=== PATIENT | female | born 1980 | race Caucasian/White ===

== ENCOUNTER 2017-01-05 09:10 | Emergency (ER) | payer OTHER ==
[2017-01-05 09:59] VITALS: BP 138/96
--- NOTE | 2017-01-05 10:35 | UC ---
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 last night had a period of panic with racing heart such that she felt unsafe to drive. Blood pressure was elevated to 143/100, decreased once she calmed down to 128. She has used alprazolam in the past for anxiety with good success. Has not used SSRI's. Stressors include work, poor sleep, childcare worries, grief over past experiences. - History Of Current Complaint Chief Complaint: UCPsych Stated Complaint: ANXIETY Time Seen by Provider: 01/05/17 10:07 Hx Obtained From: Patient Hx Last Menstrual Period: unknown, Nexplanon left arm Onset/Duration: Gradual Onset - worsening insomnia over the past month., Lasting Days - 2 Timing: Hours Severity Initially: Moderate Severity Currently: Moderate Character: Anxious Aggravating Factor(s): Recent Stress Alleviating Factor(s): Nothing Associated Signs And Symptoms: Sleep Disturbance Recent Stressor(s): experience of trauma - Risk Factor(s) Completed Suicide Risk Factors: Negative - Allergies/Home Medications Allergies/Adverse Reactions: Allergies Allergy/AdvReac Type Severity Reaction Status Date / Time No Known Allergies Allergy Verified 01/05/17 09:58 Home Medications: Home Medications Metoprolol Tartrate TAB* [Lopressor TAB*] 25 mg PO DAILY 01/05/17 [History Confirmed 01/05/17] Spironolactone TAB* [Aldactone TAB*] 25 mg PO DAILY 01/05/17 [History Confirmed 01/05/17] amLODIPine TAB* [Norvasc 5 mg TAB*] 5 mg PO DAILY 01/05/17 [History Confirmed ] PMH/Surg Hx/FS Hx/Imm Hx - Additional Past Medical History Additional PMH: obesity Cardiovascular History Of: Reports: Hypertension Psychological History Of: Reports: Anxiety - Surgical History Surgical History: Yes Surgery Procedure, Year, and Place: OPEN HEART . C Section. Exp Lap - Family History Known Family History: Positive: Other - father is bipolar mother of bile duct cancer. - Social History Occupation: Employed Full-time Lives: With Family Alcohol Use: Rare Substance Use Type: None Smoking Status (MU): Never Smoked Tobacco Review of Systems Constitutional: Fatigue Skin: Negative Eyes: Negative ENT: Negative Respiratory: Negative Cardiovascular: Palpitations - yesterday had palpitations. Gastrointestinal: Negative Genitourinary: Negative Motor: Weakness - feeling unwell at times. Neurovascular: Negative Musculoskeletal: Negative Neurological: Negative Psychological: Anxious All Other Systems Reviewed And Are Negative: Yes Physical Exam Triage Information Reviewed: Yes Appearance: Obese Vital Signs: Initial Vital Signs Temp 98.3 F 01/05/17 09:53 Pulse 100 01/05/17 09:53 Resp 14 01/05/17 09:53 BP 138/96 01/05/17 09:53 Pulse Ox 99 01/05/17 09:53 Vital Signs Reviewed: Yes Neck exam: Normal Respiratory: Positive: Lungs clear, Normal breath sounds Cardiovascular: Positive: RRR, No Murmur Psychological Exam: Other - presents neatly groomed and dressed, anxious, speech normal, thoughts organized. No hallucinations, alert and oriented. No suicidal or homicidal ideation. Insight good and judgement intact. Skin Exam: Normal Psych Complaint Course/Dx - Course Course Of Treatment: brief use of alprazolam for anxiety. follow up PMD, consider counselling. monitor BP. [facility] review--[id number] - Differential Dx/Diagnosis Provider Diagnoses: anxiety, panic disorder. Discharge - Discharge Plan Condition: Stable Disposition: HOME Prescriptions: Alprazolam [Alprazolam Odt] 0.25 mg PO TID PRN #15 tab MDD 3 PRN Reason: Anxiety Patient Education Materials: Anxiety (ED) Additional Instructions: Ensure that you follow up with Luke Magana to discuss anxiety, follow up blood pressure elevation. Use alprazolam as needed, with caution, and do not combine with alcohol and avoid driving while using. I suggest counselling for support.
== END 2017-01-05 10:51 | disposition home or self-care (01) ==
LOC: UCCORT 09:10
DX: F41.0 Panic disorder [episodic paroxysmal anxiety] (principal); I10 Essential (primary) hypertension; E66.9 Obesity, unspecified
CPT/HCPCS: 99202; G0463

== ENCOUNTER 2017-07-09 18:04 | Emergency (ER) | payer OTHER ==
--- NOTE | 2017-07-09 19:23 | UC ---
Back Pain HPI - HPI Summary HPI Summary: 36 year old female presents with cough, sinus congestion, fatigue , and back pain. - History of Current Complaint Stated Complaint: FATIGUE, BACK SPASMS Time Seen by Provider: 07/09/17 19:22 Hx Obtained From: Patient Hx Last Menstrual Period: unknown, Nexplanon left arm Onset/Duration: Sudden Onset Timing: Constant Severity Initially: Moderate Severity Currently: Moderate - Allergies/Home Medications Allergies/Adverse Reactions: Allergies Allergy/AdvReac Type Severity Reaction Status Date / Time No Known Allergies Allergy Verified 07/09/17 19:51 Home Medications: Home Medications Etonogestrel [Nexplanon] 07/09/17 [History] PMH/Surg Hx/FS Hx/Imm Hx Previously Healthy: Yes - Surgical History Surgical History: Yes Surgery Procedure, Year, and Place: OPEN HEART INFANT. C Section. Exp Lap - Family History Known Family History: Positive: Other - father is bipolar mother of bile duct cancer. - Social History Alcohol Use: Rare Substance Use Type: None Smoking Status (MU): Never Smoked Tobacco Review of Systems Constitutional: Negative Skin: Negative Eyes: Negative ENT: Sore Throat, Ear Ache, Nasal Discharge, Sinus Congestion, Sinus Pain/ Tenderness Respiratory: Negative, Cough Cardiovascular: Negative Gastrointestinal: Negative Genitourinary: Negative Motor: Negative Neurovascular: Negative Musculoskeletal: Negative Neurological: Negative Psychological: Negative All Other Systems Reviewed And Are Negative: Yes Physical Exam Triage Information Reviewed: Yes Vital Signs Reviewed: Yes Eye Exam: Normal ENT: Positive: Pharyngeal erythema, Nasal congestion, Nasal drainage, Sinus tenderness Dental Exam: Normal Neck exam: Normal Neck: Positive: 1 Respiratory Exam: Normal Cardiovascular Exam: Normal Abdominal Exam: Normal Musculoskeletal Exam: Normal Neurological Exam: Normal Psychological Exam: Normal Skin Exam: Normal Back Pain Course/Dx - Differential Dx/Diagnosis Provider Diagnoses: sinus congestion. post nasal drip cough Discharge - Discharge Plan Condition: Stable Disposition: HOME Prescriptions: Amoxicillin/Clavulanate TAB* [Augmentin TAB 875*] 875 mg PO BID #20 tab Guaifenesin-Codeine [Cheratussin AC] 1 teasp PO Q8H PRN #120 syp MDD 15 ML PRN Reason: Cough LoraTADine TAB(NF) [Claritin 10 MG TAB(NF)] 10 mg PO DAILY #30 tab Magic M W2 Tomás/Maal/Nyst/Lido* 5 ml SWISH SPIT QID PRN #120 ml PRN Reason: Pain Patient Education Materials: Sinusitis (ED) Referrals: No Primary Care Phys,NOPCP [Medical Doctor] -
[2017-07-09 20:13] VITALS: BP 131/74
== END 2017-07-09 20:19 | disposition home or self-care (01) ==
LOC: UCCORT 18:04
DX: J34.89 Other specified disorders of nose and nasal sinuses (principal); R09.82 Postnasal drip
CPT/HCPCS: 99212; G0463

== ENCOUNTER 2019-06-10 07:27 | Emergency (ER) | payer OTHER ==
--- OUTSIDE RECORDS SUMMARY | 2019-06-10 07:34 | XMS REPORT | Continuity of Care Document ---
:1980 External Reference #:[id number] Author Name Karon Palacios FNP (transmitted by agent of provider Juana Licona) Address [address] [place] [id number] Care Team Providers Name Role Phone Gabriela Nicholson PA - Medical Care Team Information Esl Professor [phone] Problems Active Problems Provider Date Benign essential hypertension Gabriela Nicholson PA Onset: 10/07/2017 Adjustment disorder with mixed emotional Mansi García FNP Onset: features Social History Type Date Description Comments Sex Unknown Tobacco Use Start: Unknown Never Smoked Cigarettes Smoking Status Reviewed: 05/20/19 Never Smoked Cigarettes ETOH Use Currently consumes alcohol socially Tobacco Use Start: Unknown Patient denies history of smoking Exercise Exercises regularly Stationary bike 3-4 Type/Frequency times per week. Allergies, Adverse Reactions, Alerts Description No Known Drug Allergies Medications Active Medications SIG Qnty Indications Ordering Provider Date Amoxicillin 1 tabs twice a 20tabs H66.91 Suzanne, 05/20/2019 875mg day x 10 days KRISSY Delong Tablets Metoprolol Tartrate Take 1 Tablet 180Tablet Gabriela Nicholson PA 02/04/2019 By Mouth Twice 25mg Tablets A Day Amlodipine Besylate Take 1 Tablet 90Tablet Gabriela Nicholson PA 12/11/2018 By Mouth Every 5mg Tablets Day Buspirone HCL take one half 60tabs F43.23 Trista Sahni, 08/21/2018 10mg to one tablet MD Tablets by mouth two times a day Sprintec 28 1 by mouth 84tabs Z30.46 Raquel, 07/01/2018 every day Mansi, 0.25-35mg-mcg PETROLOGIST Tablets Immunizations CPT Code Status Date Vaccine Lot # [id number] Given 07/01/2018 Influenza Virus Vaccine, Quadrivalent, 36 Mos+, [id number] Vital Signs Date Vital Result Comment 05/20/2019 1:57pm BP Systolic 136 mmHg BP Diastolic 93 mmHg Body Temperature 97.8 F Heart Rate 93 /min Respiratory Rate 22 /min Weight 232.38 lb O2 % BldC Oximetry 97 % Asthma Control Test 0 02/23/2019 11:49am BP Systolic 122 mmHg BP Diastolic 72 mmHg Body Temperature 98.6 F Heart Rate 81 /min Weight 227.38 lb O2 % BldC Oximetry 98 % Results Description No Information Available Procedures Date Code Description Status 02/23/2019 30055 Brief Emotional/Behav Assessment W/ Scoring Doc Per Completed Standard Inst Medical Devices Description No Information Available Encounters Type Date Location Provider Dx Diagnosis Office Visit 05/20/2019 Walk In Clinic Suzanne H66.91 Otitis media, 2:00p Karon Giordano, PETROLOGIST unspecified, right ear J01.00 Acute maxillary sinusitis, unspecified Office Visit 02/23/2019 11:30a Family Medicine Gabriela Nicholson, F43.[address] PA disorder with mixed anxiety and depressed mood I10 Essential (primary) hypertension Assessments Date Code Description Provider 05/20/2019 H66.91 Otitis media, unspecified, right ear Karon Palacios, PETROLOGIST 05/20/2019 J01.00 Acute maxillary sinusitis, Karon Palacios, PETROLOGIST unspecified 02/23/2019 F43.23 Adjustment disorder with mixed Gabriela Nicholson PA anxiety and depressed mood 02/23/2019 I10 Essential (primary) hypertension Gabriela Nicholson PA Plan of Treatment 05/20/2019 - Karon Palacios, FNPH66.91 Otitis media, unspecified, right earNew Medication:Amoxicillin 875 mg - 1 tabs twice a day x 10 daysComments:Use amoxicillin as directed,Continue regular fluid intake, may need to give smaller volumes more frequently than usual. Frequent handwashing for all members of the household to prevent spread of germs. Please avoid exposure to tobacco smoke and/or polluted air. Use Tylenol (acetaminophen), or Advil(ibuprofen), as needed for fever or aches, dosage according to package instructions. You can return to school when fever free for 24 hours without the use of fever reducing medication. followup with your primary doctor within 10 days for recheck, sooner If new or worsening symptoms occur.J01.00 Acute maxillary sinusitis, unspecifiedComments:see above Functional Status Description No Information Available Mental Status Description No Information Available Referrals Description No Information Available
[2019-06-10 07:43] VITALS: BP 132/106
--- NOTE | 2019-06-10 08:11 | UC ---
Skin Complaint HPI - HPI Summary HPI Summary: 38-year-old woman comes in with a chief complaints of a rash on her right breast. She noticed that today.'s been having about 5 days of pain in her right trapezius posterior upper thoracic area. Been using icy hot it's not helping. No rash on the back. Fevers no chills feels well otherwise. - History of Current Complaint Chief Complaint: UCSkin Time Seen by Provider: 06/10/19 08:03 Stated Complaint: RASH Hx Last Menstrual Period: 06/09/19 Pain Intensity: 7 - Allergy/Home Medications Allergies/Adverse Reactions: Allergies Allergy/AdvReac Type Severity Reaction Status Date / Time No Known Allergies Allergy Verified 06/10/19 07:36 Home Medications: Home Medications Ibuprofen TAB* [Advil TAB*] 600 mg PO Q6H PRN 06/10/19 [History Confirmed ] PMH/Surg Hx/FS Hx/Imm Hx Previously Healthy: Yes Cardiovascular History: Hypertension Psychological History: Anxiety - Surgical History Surgical History: Yes Surgery Procedure, Year, and Place: OPEN HEART . C Section. Exp Lap - Family History Known Family History: Positive: Other - father is bipolar mother of bile duct cancer. - Social History Alcohol Use: Rare Substance Use Type: None Smoking Status (MU): Never Smoked Tobacco Review of Systems All Other Systems Reviewed And Are Negative: Yes Constitutional: Positive: Negative Skin: Positive: Other - SEE HPI Eyes: Positive: Negative ENT: Positive: Negative Respiratory: Positive: Negative Cardiovascular: Positive: Negative Gastrointestinal: Positive: Negative Motor: Positive: Negative Neurovascular: Positive: Negative Musculoskeletal: Positive: Negative Neurological: Positive: Negative Psychological: Positive: Negative Is Patient Immunocompromised?: No Physical Exam Triage Information Reviewed: Yes Appearance: Well-Appearing, No Pain Distress, Well-Nourished Vital Signs: Initial Vital Signs Temp 98.4 F 06/10/19 07:38 Pulse 100 06/10/19 07:38 Resp 15 06/10/19 07:38 BP 132/106 06/10/19 07:38 Pulse Ox 99 06/10/19 07:38 Vital Signs Reviewed: Yes Eye Exam: Normal Eyes: Positive: Conjunctiva Clear Neck: Positive: Supple Respiratory: Positive: No respiratory distress Musculoskeletal: Positive: Strength Intact, ROM Intact Neurological: Positive: Alert, Muscle Tone Normal Psychological: Positive: Age Appropriate Behavior Skin: Positive: Other - In a dermatomal distribution patient has an erythematous rash with patches 2-3 mm in diameter underneath the right arm on the right lateral chest and onto the right breast. She is tender to palpation to the right side of the upper thoracic spine in the trapezius muscle. No rash on the back. Is no streaking there is no drainage. No vesicles at this time. Course/Dx - Diagnoses Provider Diagnosis: Shingles Discharge ED - Sign-Out/Discharge Documenting (check all that apply): Patient Departure All imaging exams completed and their final reports reviewed: No Studies - Discharge Plan Condition: Stable Disposition: HOME Prescriptions: Valacyclovir HCl [Valacyclovir] 1 gm PO TID #21 tab Patient Education Materials: Shingles (ED) Referrals: Gabriela Nicholson PA [Primary Care Provider] - Additional Instructions: FOLLOW UP WITH YOUR DOCTOR IF NOT COMPLETELY IMPROVED. GET REEVALUATED SOONER IF NOT IMPROVING OR YOUR CONDITION WORSENS OR ANY QUESTIONS OR CONCERNS. - Billing Disposition and Condition Condition: STABLE Disposition: Home
== END 2019-06-10 08:18 | disposition home or self-care (01) ==
LOC: UCCORT 07:27
DX: B02.9 Zoster without complications (principal); I10 Essential (primary) hypertension; F41.9 Anxiety disorder, unspecified
CPT/HCPCS: 99212; G0463

== ENCOUNTER 2019-06-14 17:42 | Emergency (ER) | payer OTHER ==
[2019-06-14 18:58] VITALS: BP 131/93
--- NOTE | 2019-06-14 19:08 | UC ---
Respiratory Complaint HPI - HPI Summary HPI Summary: C/O left eye redness and drainage with crusting. Also with sore throat, cough with coughing fits and nasal congeston. Has allergies and thought was just allergies. No sinus pain. - History of Current Complaint Chief Complaint: UCGeneralIllness Stated Complaint: ST,COUGH, B/L EYE Time Seen by Provider: 06/14/19 18:58 Hx Obtained From: Patient Hx Last Menstrual Period: 06/03/19 ?: No Onset/Duration: Gradual Onset, Lasting Weeks - 1, Worse Since - yesterday with worsening sore throat and eye drainage. Timing: Constant Severity Initially: Mild Severity Currently: Moderate Pain Intensity: 7 Character: Cough: Nonproductive Aggravating Factors: Allergens, Recumbent Position Alleviating Factors: Nothing Associated Signs And Symptoms: Positive: Wheezing, URI, Nasal Congestion. Negative: Sinus Discomfort Related History: Seasonal Allergies - Allergies/Home Medications Allergies/Adverse Reactions: Allergies Allergy/AdvReac Type Severity Reaction Status Date / Time No Known Allergies Allergy Verified 06/14/19 18:58 Home Medications: Home Medications Chlorpheniramine/Dextromethorp [Coricidin Hbp Cough-Cold Tab] 1 tab PO BID 06/14 [History Confirmed 06/14/19] PMH/Surg Hx/FS Hx/Imm Hx Previously Healthy: Yes - Surgical History Surgical History: Yes Surgery Procedure, Year, and Place: OPEN HEART INFANT. C Section. Exp Lap - Family History Known Family History: Positive: Hypertension, Other - father is bipolar mother of bile duct cancer. - Social History Occupation: Employed Full-time Lives: With Family Alcohol Use: Rare Substance Use Type: None Smoking Status (MU): Never Smoked Tobacco Review of Systems All Other Systems Reviewed And Are Negative: Yes Constitutional: Positive: Fatigue Eyes: Positive: Drainage, Eye Redness ENT: Positive: Sore Throat, Nasal Discharge Respiratory: Positive: Cough - with coughing fits at night. Physical Exam Triage Information Reviewed: Yes Appearance: No Pain Distress, Ill-Appearing, Obese Vital Signs: Initial Vital Signs Temp 98.3 F 06/14/19 18:54 Pulse 97 06/14/19 18:54 Resp 17 06/14/19 18:54 BP 131/93 06/14/19 18:54 Pulse Ox 98 06/14/19 18:54 Vital Signs Reviewed: Yes Eyes: Positive: Conjunctiva Inflamed - OS, Discharge - OS ENT: Positive: Pharyngeal erythema, Nasal congestion - with allergic changes, TMs normal Neck exam: Normal Respiratory Exam: Normal Respiratory: Positive: Wheezing - mild expiratory wheeze with coughing. Musculoskeletal Exam: Normal Neurological Exam: Normal Psychological Exam: Normal Skin Exam: Normal Respiratory Course/Dx - Differential Dx/Diagnosis Differential Diagnosis/HQI/PQRI: Asthma, Bronchitis, Lower Resp Infection, Sinusitis Provider Diagnosis: Upper respiratory infection with cough and congestion, Bronchospasm, acute, Viral conjunctivitis of left eye Discharge ED - Sign-Out/Discharge Documenting (check all that apply): Patient Departure All imaging exams completed and their final reports reviewed: No Studies - Discharge Plan Condition: Stable Disposition: HOME Prescriptions: Erythromycin OPTH OINT* [Erythromycin 0.5% OPTH OINT*] 1 applic LEFT EYE TID # 3.5 gm predniSONE TAB* [Deltasone 20 MG TAB*] 60 mg PO DAILY #18 tab Patient Education Materials: Bronchospasm (ED), Conjunctivitis (ED) Forms: *Work Release Referrals: Gabriela Nicholson PA [Primary Care Provider] - Additional Instructions: EYE OINTMENT USE: Wash hands. Place 1/4" strip across tip of finger. Pull lower lid down with the index finger and stabilize the ointment finger with the middle finger and scrape the ointment off on the lid. Pull the lid out and let go as you look down. NEILMED SINUS RINSE: CHECK OUT AT [employer] Saline nasal wash helps with mucous, allergies and congestion. It can be used up to twice a day or only as needed. Use lukewarm tap water. It does not have to be sterilized or distilled water. Do 1/3 on each side and snort out of both nostrils. Repeat the process with 1/6 of the bottle on each side with snorting in between to finish the solution in the bottle - Billing Disposition and Condition Condition: STABLE Disposition: Home
[2019-06-14] MEDS ORDERED: predniSONE TAB* 20 MG PO ONE (19:09)
[2019-06-14] MEDS ORDERED: Albuterol HFA INHALER* 8 gm MDI INH ONE (19:09)
[2019-06-14] MEDS ORDERED: Erythromycin OPTH OINT* APPLIC OINT LEFT EYE ONE (19:09)
== END 2019-06-14 19:34 | disposition home or self-care (01) ==
LOC: UCCORT 17:42
DX: B30.9 Viral conjunctivitis, unspecified (principal); J98.01 Acute bronchospasm; J06.9 Acute upper respiratory infection, unspecified; R05 Cough; R09.81 Nasal congestion; R53.83 Other fatigue
CPT/HCPCS: 99213; A9270-GY; G0463; J7512